=== PATIENT | female | born 1970 | race Caucasian/White ===

== ENCOUNTER 2019-06-19 09:51 | Day surgery (SDC) | payer MEDICARE, MEDICAID ==
[2019-06-18 13:52] VITALS: BMI 50.2
--- NOTE | 2019-06-18 13:56 | HP ---
HISTORY OF PRESENT ILLNESS: This is a 49-year-old female, who reports to our office for evaluation of low back and left greater than right leg pain. The patient states that she has had low back and right leg procedures. Surgery was discussed with her in the past, but she refused. The patient states following a heart catheterization about five months ago, her pain got significantly worse. She describes pain in the low back down the back of her leg to the top of her foot. There is pain, numbness, and tingling. She states that now her left leg has more painful and weak than the right. She states that she needs a walker to get around and she has been unable to lie flat, only sleeping in a recliner. She states that she has had urinary incontinence for the last 15 years. She is unsure if it is any worse lately. She denies any rectal or vaginal numbness. She denies physical therapy injections and takes ibuprofen for pain. REVIEW OF SYSTEMS: A 10-point review of systems has been completed and is negative other than stated in the above HPI. PAST MEDICAL HISTORY: Anxiety, hyperlipidemia, diabetes, hypertension, and thyroid disease. PAST SURGICAL HISTORY: Hysterectomy and tubal ligation. FAMILY HISTORY: Father alive, diagnosed with diabetes and hypertension. Mother is alive, diagnosed with hypertension. SOCIAL HISTORY: The patient is a smoker. MEDICATIONS: 1. Ibuprofen. 2. Atorvastatin. 3. Metformin. 4. Cyclobenzaprine. 5. Levothyroxine. 6. Enalapril. 7. Hydrochlorothiazide. 8. Tradjenta. 9. Aspirin. ALLERGIES: NO KNOWN DRUG ALLERGIES. PHYSICAL EXAMINATION: CONSTITUTIONAL: The patient is well appearing, well nourished, and alert. RESPIRATIONS: Normal work of breathing on room air. Symmetric chest rise. NEUROLOGIC: Alert and oriented x3. Speech, spontaneous and fluent. Normal fund of knowledge. Cranial nerves grossly intact. EXTREMITIES: Lower extremities, 5/5 bilateral strength in hip flexion, knee flexion, knee extension, plantarflexion; left 3/5, right 4/5 dorsiflexion; 3+/5 bilateral EHL; L5 bilateral radiculopathy. Positive single leg raise. Bilateral hip rotation, normal. Tender to palpate lumbar spine, SI joints, and greater trochanteric bursa. Deep tendon reflexes diminished bilaterally. Negative Babinski. No clonus. SENSORY: Light touch intact. GAIT AND STATION: Sit to stand is normal. Normal gait. IMAGING DATA: Lumbar MRI, large herniated nucleus pulposus at L4-5, severe stenosis. ASSESSMENT AND PLAN: Lumbar back pain with radiculopathy due to herniated nucleus pulposus of the lumbar region. Dr. Carter has offered surgery, L4-5 laminectomy, diskectomy. Dr. Carter has discussed indications, risks, benefits, alternatives, and expected results from surgery. The risks discussed included, but were not limited to, bleeding, infection, CSF leak, nerve damage, weakness, incontinence, cauda equina injury, arachnoiditis, paralysis, ventilator dependence, wheelchair dependence, loss of vision, cardiopulmonary complications of anesthesia, or . Long-term complications discussed included, but were not limited to degradation of surrounding disks and the need for further surgery. The patient states that she understands the risks and is willing to proceed. Job ID: [id number]
[2019-06-19] MEDS ORDERED: Sodium Chloride 0.9% 10 ML ONE (10:47)
[2019-06-19] MEDS ORDERED: Bupivacaine HCl 0.5%/Epinephrine 1:200,000/PF 30 ml Vial ONE (10:47)
[2019-06-19] MEDS ORDERED: Thrombin 5000 UNITS/5 ML VIAL ONE (10:47)
[2019-06-19 11:06] LABS: INR-International Normal Ratio 0.9; PTT 27.7 SEC (22.9-36.1); Prothrombin Time 12.3 SEC (12.0-14.7)
[2019-06-19] MEDS ORDERED: Ketorolac Tromethamine 30 MG/ML VIAL ONE (11:24)
[2019-06-19] MEDS ORDERED: Rocuronium Bromide 10 MG/ML (10ML VIAL) ONE (11:24)
[2019-06-19] MEDS ORDERED: Dexamethasone 20 MG/5 ML VIAL ONE (11:24)
[2019-06-19] MEDS ORDERED: PROPOFOL 200 MG/20 ML VIAL ONE (11:24)
[2019-06-19] MEDS ORDERED: Ondansetron PF 4 MG/2 ML Vial ONE (11:24)
[2019-06-19] MEDS ORDERED: Glycopyrrolate 0.2 MG/ML 5 ML SYRINGE ONE (11:24)
[2019-06-19] MEDS ORDERED: Lidocaine 1% PF 5 ML VIAL ONE (11:24)
[2019-06-19] MEDS ORDERED: Fentanyl 100 MCG/2 ML VIAL ONE ×3 (11:40→15:45)
[2019-06-19] MEDS ORDERED: SUGAMMADEX SODIUM 200 MG/2 ML VIAL ONE (14:31)
[2019-06-19] MEDS ORDERED: Morphine 4 MG/ML VIAL ONE (15:35)
[2019-06-19] MEDS ORDERED: Promethazine HCl 25 MG/ML VIAL ONE (15:44)
--- NOTE | 2019-06-19 16:48 | OP ---
DATE OF PROCEDURE: 06/19/2019 PROJECT DEVELOPMENT COORDINATOR: Candis Harp PA-C. PREOPERATIVE INDICATION: Treat pain and prevent neurological deterioration. PREOPERATIVE DIAGNOSES: 1. Extremely large intervertebral disk herniation L4-L5 with bilateral L5 radiculopathies and cauda equina compression. 2. Morbid obesity. POSTOPERATIVE DIAGNOSES: 1. Extremely large intervertebral disk herniation L4-L5 with bilateral L5 radiculopathies and cauda equina compression. 2. Morbid obesity. PROCEDURES PERFORMED: Decompressive laminectomy, medial facetectomy, foraminotomy at L4-L5, bilateral microdiskectomy L4-L5, and operating microscope. PREOPERATIVE MEDICATIONS: Ancef 2 g IV. DRAIN NUMBER: Zero. DRAIN TYPE: None. DESCRIPTION OF PROCEDURE: The patient was brought to the operating room. General endotracheal anesthesia was induced. This morbidly obese patient was placed prone on the Rajesh frame with the appropriate padding for the chest and hips. We ensured adequate ventilation before proceeding. We took a lateral fluoro radiograph to confirm the levels upon which we were operating. We marked our incision, and the lumbar skin was sterilely prepped and draped. We opened with a 10 blade knife and controlled bleeding with bipolar cautery. We used monopolar cautery to dissect through the subcutaneous fat to the thoracodorsal fascia. The fascia was at least 5 full inches, if not 6 full inches from the skin and multiple deep retractors were used just to visualize the fascia. The fascia was then incised in the midline, and the paraspinal muscles reflected off the spinous process and lamina of L4 and L5. A long self-retaining retractor was placed to give us adequate exposure. A lateral fluoro radiograph confirmed the levels upon, which we were operating. We then used a Leksell rongeur to remove the spinous process of L4 and the top of L5. We used Kerrison rongeurs to fashion a laminectomy at L4 and widened it until we were in line with the medial portion of the pedicles at L4 and L5. The operative microscope was brought in the field. Under microscopic magnification using microsurgical techniques, we carefully continued our laminectomy. We used a high-speed drill to thin the superior portion of the L5 lamina and removed this in a piecemeal fashion as well. We then had to perform medial facetectomies to get around the lateral aspect of the dura. We removed overgrown facet joints and yellow ligament until we could visualize the lateral edge of the dura and both of the L5 nerve roots as they were draped across the intervertebral disk herniation ventrally. We had greater access to the disk on the left side, so we placed a tiny nerve root retractor under the dura and removed large fragments of disk from the ventral epidural space. This freed the dura significantly on the left side in all the way to the midline. The right side of the dura was still attached to the disk protrusion and was relatively immobile. With gentle bipolar cautery, we cut some attachments. We controlled epidural bleeding and then we entered the disk protrusion lateral to the dura. We removed multiple fragments. We reduced disk back into the interspace and swept it laterally and with all these maneuvers, we got a little bit more disk out from the ventral epidural space until the dura could be retracted medially to the midline and there was no further significant stretch on the nerve roots. We then irrigated with bacitracin irrigation. We took a fat graft from the superficial tissues and placed it in a gaping hole in the posterior aspect of the intervertebral disk from which all the disk material had herniated, excursion of the nerves and provided nice hemostasis. We waxed the bone edges. We infused local anesthetic in the paraspinal muscles. We irrigated the wound once again with bacitracin irrigation. We treated the wound with vancomycin power, and we closed in anatomical layers. Both opening, closing, placement of the retractors and the diskectomy were significantly lengthen and hindered by the patient's morbid obesity. Job ID: [id number]
[2019-06-19] MEDS ORDERED: HYDROcodone/Acetaminophen 5/325 mg Tablet ONE (18:06)
== END 2019-06-19 19:33 | disposition home or self-care (01) ==
LOC: SDC 09:51
PROVIDERS: ATTEND Neurological Surgery
PROC: 0SB20ZZ Excision of Lumbar Vertebral Disc, Open Approach (ICD-10-PCS; principal; 2019-06-19)
DX: M51.16 Intervertebral disc disorders with radiculopathy, lumbar region (principal); G83.4 Cauda equina syndrome; E66.01 Morbid (severe) obesity due to excess calories; E11.9 Type 2 diabetes mellitus without complications; I10 Essential (primary) hypertension; E78.5 Hyperlipidemia, unspecified; Z68.43 Body mass index [BMI] 50.0-59.9, adult; Z79.1 Long term (current) use of non-steroidal anti-inflammatories (NSAID); Z79.82 Long term (current) use of aspirin; Z79.84 Long term (current) use of oral hypoglycemic drugs; Z79.899 Other long term (current) drug therapy
CPT/HCPCS: 36415; 76000; 85610; 85730; J0131; J0670; J0690; J1100; J1885; J2001; J2270; J2405; J2550; J2704; J3010; J3370; J3490